=== PATIENT | female | born 1990 | race African-American/Black ===

== ENCOUNTER 2016-11-23 18:28 | Emergency (ER) | payer MEDICAID, OTHER ==
[~2016-11-23] VITALS: Ht 175.3 cm; Wt 72.6 kg
[~2016-11-23 18:28] MED LIST: BACTRIM-DS1 EA PO; MACRODANTIN100 MG ORAL
[2016-11-23 18:44] VITALS: BP 117/76
--- NOTE | 2016-11-23 19:05 | Emergency Room Report ---
History of Present Illness General Chief Complaint: Upper Respiratory Illness Source: Patient Present Illness [facility] The patient is a 26-year-old female who denies any medical history presenting for sore throat, fever, chills, sweats, and chest congestion which all began 3 months prior. The patient was treated for pharyngitis with azithromycin and states that symptoms did decline but soon returned. The patient denies sick contacts or travel before the symptoms occurred. The patient describes throat pain as a 5/10 burning sensation. The patient denies nausea, vomiting, abdominal pain, headache, neck pain or stiffness, rash, weight loss, fatigue Allergies: Coded Allergies: PENICILLINS (Verified Allergy, Severe, Anaphylaxis, 01/23/13) Throat close Patient History Past Medical History: see triage record Pertinent Family History: none Last Menstrual Period: 11/18/16 Now: No Reviewed Nursing Documentation: PMH: Agreed, PSxH: Agreed Nursing Documentation-PMH Past Medical History: No Stated History Review of Systems All Other Systems: negative except mentioned in HPI Physical Exam Vital Signs Date Time Temp Pulse Resp B/P Pulse Ox O2 Delivery O2 Flow Rate FiO2 11/23/16 18:35 97.9 97 18 117/76 96 Room Air Sp02 EP Interpretation: reviewed, normal General Appearance: no apparent distress, alert, GCS 15, non-toxic Head: normocephalic, atraumatic Eyes: bilateral eye PERRL, bilateral eye normal inspection ENT: hearing grossly normal, no angioedema, normal voice, TMs + canals normal, uvula midline, moist mucus membranes, tonsillar swelling, pharyngeal erythema Neck: full range of motion, no bony tend, supple/symm/no masses Respiratory: chest non-tender, no respiratory distress, no accessory muscle use , decreased breath sounds, speaking full sentences, wheezing - bilat Cardiovascular #1: regular rate, rhythm, no edema Gastrointestinal: normal bowel sounds, non tender, soft, non-distended, no guarding, no rebound Musculoskeletal: back normal, gait/station normal, normal range of motion, non- tender Neurologic: alert, oriented x3, responsive, motor strength/tone normal, sensory intact, speech normal Psychiatric: judgement/insight normal, memory normal, mood/affect normal, no suicidal/homicidal ideation Skin: normal color, no rash, warm/dry, well hydrated Lymphatic: adenopathy - Anterior and posterior cervical Medical Decision Making PA Attestation Dr. Cedeño is my supervising physician. Patient management was discussed with my supervising physician Diagnostic Impression: Primary Impression: Pharyngitis, acute Additional Impression: Bronchitis ER Course The patient is a 26-year-old female who denies any medical history presenting for sore throat, fever, chills, sweats, and chest congestion x 3 months Differential diagnosis include but not limited to pharyngitis, sinusitis, AOM, bronchitis, PNA PE: Vitals WNL. NAD. HEENT: There is bilateral tonsillar edema and erythema. Anterior and posterior cervical lymphadenopathy. Lungs: Bilateral decreased breath sounds with wheezing Otherwise unremarkable Chest x-ray unremarkable The patient will be discharged home with a prescription for azithromycin, albuterol, and a short course of oral steroids. ER precautions are given and the patient will follow up with primary care physician Chest X-Ray Diagnostic Results EP Interpretation: Yes Findings: no consolidation, no effusion, no pneumothorax Number of Views: 1 PA Scribe Text I am acting as scribe for my supervising physician. My supervising physician's interpretation of the chest xrays are there is no consolidation, no effusion, no acute cardiopulmonary disease, no pneumothorax Last Vital Signs Date Time Temp Pulse Resp B/P Pulse Ox O2 Delivery O2 Flow Rate FiO2 11/23/16 18:44 97 18 Room Air 11/23/16 18:44 97.9 117/76 96 Status: improved Disposition: HOME, SELF-CARE Condition: Improved Scripts Guaifenesin/Dextromethorphan (Robitussin Cough-Chest Dm Liq) 118 Ml Liquid 10 ML PO Q4HR, #118 ML Prov: TERZIAN,ROSI P.A. 11/23/16 Azithromycin* (ZITHROMAX*) 250 Mg Tablet 250 MG ORAL DAILY, #6 TAB 0 Refills Take two tables once daily for 1 day, then one tablet once daily for 4 days. Prov: TERZIAN,ROSI P.A. 11/23/16 Albuterol Sulfate* (PROAIR HFA*) 8.5 Gm Hfa.aer.ad 2 PUFFS INH Q6H, #8.5 GM 0 Refills Prov: TERZIAN,ROSI P.A. 11/23/16 Prednisone* (PREDNISONE*) 20 Mg Tablet 20 MG ORAL DAILY, #5 TAB 0 Refills Prov: TERZIAN,ROSI P.A. 11/23/16 ROSI MUNGUIA Nov 23, 2016 19:05
[2016-11-23] MEDS ORDERED: PREDNISONE20 MG ORAL (20:11)
[2016-11-23] MEDS ORDERED: PROAIR HFA8.5 GM INH (20:11)
[2016-11-23] MEDS ORDERED: ZITHROMAX250 MG ORAL (20:11)
[2016-11-23] MEDS ORDERED: ROBITUSSIN COU118 M4 PO (20:11)
[2016-11-23 20:36] VITALS: BP 117/76
--- NOTE | 2016-11-24 10:31 | Diagnostic Imaging Report ---
Indication: COUGH Technique: Single portable AP view of the chest. Findings: Comparison: None. The bones and extra pulmonary soft tissues, cardiomediastinal silhouette, pulmonary vasculature and parenchyma, and pleural surfaces are unremarkable. IMPRESSION: Negative portable AP chest.
== END 2016-11-23 20:37 | disposition home or self-care (01) ==
LOC: EMR 19:04
DX: J02.9 Acute pharyngitis, unspecified (principal); J40 Bronchitis, not specified as acute or chronic; Z88.0 Allergy status to penicillin
CPT/HCPCS: 71010; 99283